=== PATIENT | male | born 1935 | race Caucasian/White ===

== ENCOUNTER 2016-09-01 18:08 | Emergency (ER) | payer OTHER, MEDICARE ==
[~2016-09-01 18:08] MED LIST: ASPIR LOW81 MG PO; ATENOLOL25 MG PO; BLACK CHERRY PO; CENTRUM SILVER1 TA4 PO; COLCRYS PO; COLCRYS0.6 M1 PO; COLON HEALTH PO; COZAAR50 MG PO; E400400 IU PO; FENOFIBRATE MI134 MG PO; FINASTERIDE5 M1 PO; FLONASE0.05 MG/Ac NS; LAC PO; LEV500 PO; MEDDP PO; NAP375 PO; NEU300 PO; NORCO PO; PHECL PO; PRILOSEC20 MG PO; PRO30 PO; PROAIR HFA0.09 MG/A1 INH; SIMVASTATIN80 M1 PO; TEN25 PO; VITAMIN C1000 M2 PO
[2016-09-01 20:01] LABS: BASOPHIL % 0.1 % (0-2); PLATELET COUNT 202 x10^3mcL (130-400); RED CELL DISTRIBUTION WIDTH 12.3 % (11.5-14.5)
[2016-09-01 20:20] LABS: ALBUMIN 3.9 g/dL (3.4-5.0); ALKALINE PHOSPHATASE 31 U/L (46-116); ALT/SGPT 25 U/L (16-63); AST/SGOT 22 U/L (15-37); BILIRUBIN TOTAL 0.6 mg/dL (0.20-1.00); CALCIUM 9.1 mg/dL (8.5-10.1); CARBON DIOXIDE 27.3 mmol/L (21-32); CHLORIDE SERUM 103 mmol/L (98-107); CREATININE SERUM 2.4 mg/dL (0.7-1.3); GLUCOSE SERUM 120 mg/dL (74-106); POTASSIUM SERUM 3.9 mmol/L (3.5-5.1); SODIUM SERUM 139 mmol/L (136-145); TOTAL PROTEIN, SERUM 7.7 g/dL (6.4-8.2)
[2016-09-01 20:43] LABS: UA SPECIFIC GRAVITY 1.025 (1.005-1.035); microscopic required? YES; urine erythrocyte 3+ (NEGATIVE)
[2016-09-01 23:19] VITALS: BP 135/62
== END 2016-09-01 23:19 | disposition home or self-care (01) ==
LOC: ED 18:08
PROVIDERS: Emergency Medicine
DX: N39.0 Urinary tract infection, site not specified (principal); J40 Bronchitis, not specified as acute or chronic
CPT/HCPCS: J0696; J7613; J7644; Q0092

== ENCOUNTER 2016-09-04 12:00 | Inpatient (IN) | payer OTHER, MEDICARE ==
[~2016-09-04] VITALS: Ht 177.8 cm; Wt 90.3 kg
[2016-09-04 13:07] LABS: BASOPHIL % 0.4 % (0-2); PLATELET COUNT 218 x10^3mcL (130-400); RED CELL DISTRIBUTION WIDTH 12.7 % (11.5-14.5)
[2016-09-04 13:19] LABS: CALCIUM 9.1 mg/dL (8.5-10.1); CHLORIDE SERUM 102 mmol/L (98-107); CREATININE SERUM 2.2 mg/dL (0.7-1.3); GLUCOSE SERUM 104 mg/dL (74-106); POTASSIUM SERUM 4.4 mmol/L (3.5-5.1); SODIUM SERUM 137 mmol/L (136-145)
[2016-09-04 13:23] LABS: ALBUMIN 3.4 g/dL (3.4-5.0); ALKALINE PHOSPHATASE 29 U/L (46-116); ALT/SGPT 39 U/L (16-63); AST/SGOT 44 U/L (15-37); BILIRUBIN TOTAL 0.34 mg/dL (0.20-1.00); TOTAL PROTEIN, SERUM 7.4 g/dL (6.4-8.2)
[2016-09-04 14:24] LABS: microscopic required? YES; urine erythrocyte 2+ (NEGATIVE)
[2016-09-04 15:24] VITALS: BP 150/64
[2016-09-04 16:01] VITALS: BP 150/64
[2016-09-04 16:10] LABS: MAGNESIUM 2.7 mg/dL (1.8-2.4); PHOSPHOROUS 3.5 mg/dL (2.5-4.9)
[2016-09-04 16:11] LABS: T3 TOTAL 0.71 ng/mL
[2016-09-04 16:12] LABS: CHOLESTEROL/HDL RATIO 4.2
[2016-09-04 16:18] LABS: FREE T4 1.42 ng/dL (0.76-1.46); FREE THYROXINE INDEX 2.7 ug/dL (1.4-4.5); T4(THYROXINE) 7.3 ug/dL (4.7-13.3)
[2016-09-04 17:31] LABS: AMPHETAMINE QUAL UR NONE DETECTED (NEG <=1000)
[2016-09-04 21:53] VITALS: BP 139/61
[2016-09-05 06:08] VITALS: BP 144/63
[2016-09-05 07:09] LABS: BASOPHIL % 0.3 % (0-2); PLATELET COUNT 201 x10^3mcL (130-400); RED CELL DISTRIBUTION WIDTH 12.8 % (11.5-14.5)
[2016-09-05 07:23] LABS: ALBUMIN 3.1 g/dL (3.4-5.0); CALCIUM 9.1 mg/dL (8.5-10.1); CARBON DIOXIDE 24.9 mmol/L (21-32); CHLORIDE SERUM 105 mmol/L (98-107); CREATININE SERUM 1.8 mg/dL (0.7-1.3); GLUCOSE SERUM 120 mg/dL (74-106); MAGNESIUM 2.7 mg/dL (1.8-2.4); POTASSIUM SERUM 4.5 mmol/L (3.5-5.1); SODIUM SERUM 139 mmol/L (136-145)
[2016-09-05 09:20] VITALS: BP 137/62
[2016-09-05 12:41] VITALS: BP 147/55
[2016-09-05 17:35] VITALS: BP 156/63
[2016-09-05 21:08] VITALS: BP 135/61
[2016-09-06 05:27] VITALS: BP 149/65
[2016-09-06 07:13] LABS: CARBON DIOXIDE 25.8 mmol/L (21-32); CHLORIDE SERUM 107 mmol/L (98-107); CREATININE SERUM 1.7 mg/dL (0.7-1.3); GLUCOSE SERUM 87 mg/dL (74-106); MAGNESIUM 2.3 mg/dL (1.8-2.4); POTASSIUM SERUM 4.3 mmol/L (3.5-5.1); SODIUM SERUM 141 mmol/L (136-145)
[2016-09-06 07:15] LABS: BASOPHIL % 0.5 % (0-2); PLATELET COUNT 230 x10^3mcL (130-400); RED CELL DISTRIBUTION WIDTH 12.8 % (11.5-14.5)
[2016-09-06 07:18] LABS: ALBUMIN 3.2 g/dL (3.4-5.0)
[2016-09-06 09:16] VITALS: BP 150/69
[2016-09-06] MEDS ORDERED: LAC PO (10:09)
[2016-09-06] MEDS ORDERED: LEV500 PO (10:10)
[2016-09-06] MEDS ORDERED: VITAMIN C PUR1000 M1 PO (10:19)
[2016-09-06] MEDS ORDERED: CENTRUM SILVER1 EACH PO (10:24)
[2016-09-06] MEDS ORDERED: COZ25 PO (10:27)
[2016-09-06] MEDS ORDERED: FLONS (10:27)
[2016-09-06] MEDS ORDERED: PROAIR HFA8.5 GM (10:29)
[2016-09-06] MEDS ORDERED: COLCRYS0.6 M2 PO (10:30)
[2016-09-06 10:32] VITALS: BP 150/69
== END 2016-09-06 10:45 | disposition home or self-care (01) | DRG 190 ==
LOC: ED 12:00 → DU 14:34 → MU 09-06 08:29
PROVIDERS: Emergency Medicine; Family Medicine; ADMIT Family Medicine
DX: J44.1 Chronic obstructive pulmonary disease with (acute) exacerbation (principal); N17.0 Acute kidney failure with tubular necrosis; N39.0 Urinary tract infection, site not specified; I25.10 Atherosclerotic heart disease of native coronary artery without angina pectoris; I10 Essential (primary) hypertension; E86.0 Dehydration; E83.41 Hypermagnesemia; M10.9 Gout, unspecified; N40.0 Benign prostatic hyperplasia without lower urinary tract symptoms; R31.9 Hematuria, unspecified; C61 Malignant neoplasm of prostate; E78.1 Pure hyperglyceridemia; D64.9 Anemia, unspecified; E78.5 Hyperlipidemia, unspecified; M19.90 Unspecified osteoarthritis, unspecified site; Z68.26 Body mass index [BMI] 26.0-26.9, adult; Z95.1 Presence of aortocoronary bypass graft; Z87.891 Personal history of nicotine dependence; Z95.5 Presence of coronary angioplasty implant and graft; Z85.828 Personal history of other malignant neoplasm of skin
CPT/HCPCS: 36600; 80307; 83880; 84439; 94150; J1956; J7030; J7512; J7613; J7620; J7644; Q0092

== ENCOUNTER → 2016-12-14 | Outpatient (CLI) | payer OTHER, MEDICARE ==
[~2016-12-14] MED LIST changes: +CENTRUM SILVER1 EACH PO; +COLCRYS0.6 M2 PO; +COZ25 PO; +FLONS; +PROAIR HFA8.5 GM; +VITAMIN C PUR1000 M1 PO
== END | disposition home or self-care (01) ==
LOC: RD 10:08
DX: R05 Cough (principal); M54.9 Dorsalgia, unspecified

== ENCOUNTER 2019-05-31 06:34 | Day surgery (SDC) | payer OTHER, MEDICARE ==
[~2019-05-31] VITALS: Ht 177.8 cm; Wt 81.6 kg
[2019-05-31 07:05] VITALS: BP 141/58
[2019-05-31 10:10] VITALS: BP 126/66
== END 2019-05-31 10:15 | disposition home or self-care (01) ==
LOC: DS 06:34 → GI 08:00 → OR 08:00 → DS 10:15
DX: K22.0 Achalasia of cardia (principal); K21.9 Gastro-esophageal reflux disease without esophagitis; K22.8 Other specified diseases of esophagus; K29.50 Unspecified chronic gastritis without bleeding; B96.81 Helicobacter pylori [H. pylori] as the cause of diseases classified elsewhere; K31.7 Polyp of stomach and duodenum; K31.89 Other diseases of stomach and duodenum; C61 Malignant neoplasm of prostate; I11.9 Hypertensive heart disease without heart failure; E78.5 Hyperlipidemia, unspecified; Z86.73 Personal history of transient ischemic attack (TIA), and cerebral infarction without residual deficits; Z79.82 Long term (current) use of aspirin; Z79.899 Other long term (current) drug therapy; Z80.0 Family history of malignant neoplasm of digestive organs; Z80.1 Family history of malignant neoplasm of trachea, bronchus and lung; Z95.1 Presence of aortocoronary bypass graft; Z87.891 Personal history of nicotine dependence
CPT/HCPCS: 43235; J1200; J1610; J2250; J2310; J3010; J3490